=== PATIENT | male | born 1990 ===

== ENCOUNTER 2019-07-20 20:32 | Emergency (ER) | payer SELFPAY ==
[2019-07-20] MEDS ORDERED: Acetaminophen 500 MG TAB ONE (22:12)
--- NOTE | 2019-07-20 22:31 | RAD ---
EXAM: Two views chest PROVIDED CLINICAL HISTORY: Cough, flulike symptoms. COMPARISON: None FINDINGS: Cardiac silhouette and pulmonary vasculature are within normal limits. The lungs are clear. The osse ous structures have a normal appearance. IMPRESSION: No acute cardiopulmonary process.
[2019-07-20] MEDS ORDERED: Ibuprofen 800 MG TAB ONE (22:51)
== END 2019-07-20 22:59 | disposition home or self-care (01) ==
LOC: ERS 20:32
DX: J06.9 Acute upper respiratory infection, unspecified (principal)
CPT/HCPCS: 71046; 87804